=== PATIENT | female | born 1950 | race Native Hawaiian/Other Pacific Islander ===

== ENCOUNTER 2017-04-15 09:46 | Outpatient (CLI) | payer OTHER | END 2017-04-15 11:00 | disposition home or self-care (01) | LOC: MAMMO 09:46 | DX: Z12.31 Encounter for screening mammogram for malignant neoplasm of breast (principal) ==

== ENCOUNTER 2017-04-27 17:45 | Emergency (ER) | payer OTHER ==
[~2017-04-27] VITALS: Ht 165.1 cm; Wt 96.6 kg
[2017-04-27 17:54] VITALS: TEMP 98.1
[2017-04-27] MEDS ORDERED: ATEN25TA21 PO (17:55)
[2017-04-27] MEDS ORDERED: LEVO0.1224 PO (17:56)
[2017-04-27] MEDS ORDERED: PROZAC10 MG PO (17:56)
[2017-04-27] MEDS ORDERED: DEMADEX10 MG PO (17:56)
[2017-04-27 18:14] LABS: PLATELET COUNT 249 K/uL (152-353)
[2017-04-27 18:25] LABS: POTASSIUM 3.1 mmol/L (3.6-5.2); SODIUM 135 mmol/L (136-145)
[2017-04-27 18:55] VITALS: BP 120/71
== END 2017-04-27 19:09 | disposition home or self-care (01) ==
LOC: ED 17:45
DX: K52.9 Noninfective gastroenteritis and colitis, unspecified (principal); E87.6 Hypokalemia
CPT/HCPCS: 80053; 85027; 87205; 87324; 87449; 99284; J2405

== ENCOUNTER 2018-04-17 08:17 | Outpatient (CLI) | payer OTHER ==
[~2018-04-17 08:17] MED LIST: ATEN25TA21 PO; DEMADEX10 MG PO; LEVO0.1224 PO; PROZAC10 MG PO
== END 2018-04-17 20:10 | disposition home or self-care (01) ==
LOC: MAMMO 08:17
DX: Z12.31 Encounter for screening mammogram for malignant neoplasm of breast (principal)

== ENCOUNTER 2018-06-23 11:29 | Outpatient (CLI) | payer OTHER | END 2018-06-23 11:45 | disposition short-term general hospital (02) | LOC: AMB 11:29 | DX: R07.89 Other chest pain (principal) | CPT/HCPCS: A0425; A0427 ==

== ENCOUNTER 2019-04-09 12:12 | Outpatient (CLI) | payer OTHER | END 2019-04-09 20:39 | disposition home or self-care (01) | LOC: RAD 12:12 | DX: R06.02 Shortness of breath (principal) ==

== ENCOUNTER 2022-03-26 08:51 | Outpatient (CLI) | payer OTHER | END 2022-03-26 20:41 | disposition home or self-care (01) | LOC: MAMMO 08:51 | PROVIDERS: ATTEND Nurse Practitioner Family | DX: Z12.31 Encounter for screening mammogram for malignant neoplasm of breast (principal) ==